=== PATIENT | male | born 1975 | race Caucasian/White ===

== ENCOUNTER 2018-11-26 13:16 | Emergency (ER) | payer MEDICARE ==
[~2018-11-26] VITALS: Ht 180.3 cm; Wt 81.7 kg
--- OUTSIDE RECORDS SUMMARY | 2018-11-26 13:18 | XMS ---
PreManage Notification: TERI CARROLL Security [employer] Events No recent Security Events currently on file CRITERIA MET - Group Notification - 6 ED Visits in 6 Months - [facility] - 3 Facilities in 90 Days - [facility] - 2 Visits in 30 Days CARE PROVIDERS PATITO GOODor: Mental Health Current PHONE: [phone] [facility] Primary Care Current PHONE: Unknown [facility] Primary Care Current PHONE: Unknown [facility] Primary Care [facility] PHONE: Unknown [facility] Primary Care [facility] PHONE: Unknown Janel has no Care Guidelines for this patient. E.D. VISIT COUNT (12 MO.) 3 [facility] 3 [facility] 5 [facility] 7 [facility]. 2 [facility] 2 PAWEL Alvarado TOTAL 43 NOTE: Visits indicate total known visits. ED/UCC VISIT TRACKING (12 MO.) 11/26/2018 13:17 [facility] [place] TYPE: Emergency COMPLAINT: - POSSIBLE STAFF INF 11/23/2018 21:08 [facility] TYPE: Emergency DIAGNOSES: - RT LEG WOUND CHECK 11/22/2018 11:18 [facility] DIAGNOSES: - Cutaneous abscess of groin - GENERAL 11/21/2018 18:32 [facility] [place] TYPE: Emergency DIAGNOSES: - hard time breathing 11/14/2018 23:13 PAWEL Souza TYPE: Emergency COMPLAINT: - SOB DIAGNOSES: - Shortness of breath - Pain, unspecified - Nicotine dependence, unspecified, uncomplicated 10/25/2018 18:01 [facility] [place] [facility] TYPE: Emergency DIAGNOSES: - Other symptoms and signs involving appearance and behavior - Restlessness and agitation - medical clearance 10/24/2018 03:51 [facility] Rocío [facility] TYPE: Emergency DIAGNOSES: - Pain, unspecified - Medical Problem 05/29/2018 08:56 Archana GUSMAN TYPE: Emergency COMPLAINT: - CHEST PAIN 05/28/2018 23:17 Archana GUSMAN TYPE: Emergency COMPLAINT: - RIGHT ARM PROBLEM 05/26/2018 04:38 Archana GUSMAN TYPE: Emergency COMPLAINT: - COUGH 05/19/2018 11:59 Archana GUSMAN TYPE: Emergency COMPLAINT: - AMB/ARM INFECTION/NOT FEBRILE 05/16/2018 22:28 Archana GUSMAN TYPE: Emergency COMPLAINT: - ARM PROBLEM 05/16/2018 09:51 Archana GUSMAN TYPE: Emergency COMPLAINT: - AMB/ ARM WOUND/HYPERVERBAL/AGITATION 05/16/2018 01:50 Edwardo [facility] TYPE: Emergency DIAGNOSES: - Unspecified open wound of right forearm, initial encounter 05/15/2018 21:22 Nelson [facility] TYPE: Emergency DIAGNOSES: - Restlessness and agitation - Encounter for removal of sutures 05/14/2018 12:18 [facility] Care TYPE: Urgent Care DIAGNOSES: - Unspecified open wound of right upper arm, initial encounter - Wound Check - Other symptoms and signs involving appearance and behavior - Arm infection 05/13/2018 16:59 Nelson [facility] TYPE: Emergency 05/11/2018 03:17 Edwardo [facility] TYPE: Emergency DIAGNOSES: - Malingerer [conscious simulation] 05/10/2018 13:48 Edwardo [facility] TYPE: Emergency DIAGNOSES: - Encounter for other specified aftercare - Estebaningerer [conscious simulation] 05/09/2018 00:01 Nelson [facility] TYPE: Emergency DIAGNOSES: - Cutaneous abscess of right upper limb Plus 25 More Visits INPATIENT VISIT TRACKING (12 MO.) 11/23/2018 21:08 [facility] TYPE: Medical Surgical DIAGNOSES: - RT LEG WOUND CHECK - Cutaneous abscess of groin - Cellulitis of groin 05/07/2018 22:32 Edwardo [facility] TYPE: Medical Surgical DIAGNOSES: - Necrotizing fasciitis - Necrotizing fasciitis 05/05/2018 11:32 Edwardo [facility] TYPE: Medical Surgical DIAGNOSES: - Necrotizing fasciitis - Necrotizing fasciitis 05/04/2018 09:15 Edwardo [facility] TYPE: Medical Surgical DIAGNOSES: - Cutaneous abscess of right upper limb - Cellulitis of right upper limb 01/02/2018 01:01 Carmen [facility] TYPE: Psychiatry COMPLAINT: - PSYCHIATRIC PROBLEM DIAGNOSES: - UNSPECIFIED PSYCHOSIS [email or web address]
[2018-11-26] MEDS ORDERED: BACTRIM DS TAB1 EACH PO (19:01)
[2018-11-26] MEDS ORDERED: NAPROSYN500 MG PO (19:01)
[2018-11-26] MEDS ORDERED: GABAPENTIN300 MG PO (19:01)
== END 2018-11-26 19:25 | disposition home or self-care (01) ==
LOC: ED 13:16
DX: L02.214 Cutaneous abscess of groin (principal); L03.314 Cellulitis of groin; F41.9 Anxiety disorder, unspecified; F17.200 Nicotine dependence, unspecified, uncomplicated
CPT/HCPCS: 80053; 82247; 82465; 83615; 84100; 84478; 84550; 85025; 96365; 96366; 96368; 96375; 99283-25; J0692; J3010; J3370; J7060